=== PATIENT | female | born 1970 | race African-American/Black ===

== ENCOUNTER 2024-07-16 19:19 | Inpatient (IN) | payer OTHER ==
[~2024-07-16] VITALS: Ht 165.1 cm; Wt 148.4 kg
[2024-07-16 19:30] VITALS: PULSE 116; RESP 29; O2SAT 98
[2024-07-16] MEDS: MethylPREDNISolone SOD SUCC 125 MG/2 ML VIAL IVP ONE (19:36)
[2024-07-16] MEDS: ALBUTEROL SULFATE 2.5 MG/0.5 ML NEB SOLUTION NEB ONE ×2 (19:39→21:15)
[2024-07-16 19:48] LABS: BASOPHILS % (AUTO) 0.3 % (0.0-2.0); EOSINOPHILS % (AUTO) 0 % (1.0-6.0); HEMATOCRIT 47.5 % (36-46); HEMOGLOBIN 14.7 g/dL (12.0-16.0); LYMPHOCYTES # (AUTO) 2.7 K/uL (1.0-4.8); LYMPHOCYTES % (AUTO) 17.4 % (22.0-44.0); MEAN CORPUSCULAR HEMOGLOBIN 28.6 pg (26.0-34.0); MEAN CORPUSCULAR HGB CONC 30.9 G/dL (31.0-37.0); MEAN CORPUSCULAR VOLUME 93 fL (80-100); MONOCYTES # (AUTO) 1.1 K/uL (0.1-1.0); NEUTROPHILS # (AUTO) 11.6 K/uL (1.8-7.7); NEUTROPHILS % (AUTO) 75.3 % (40.0-70.0); PLATELET COUNT (AUTO) 268 K/uL (150-450); RED BLOOD CELL COUNT(AUTO) 5.14 MIL/uL (4.00-5.20); RED CELL DISTRIBUTION WIDTH 15.4 % (11.5-14.5); WHITE BLOOD COUNT (AUTO) 15.4 K/uL (4.5-11.0)
[2024-07-16 19:59] LABS: ANION GAP -1 mmol/L (8-16); CALCIUM, TOTAL 8.5 mg/dL (8.8-10.5); CARBON DIOXIDE 36 mmol/L (22-29); CHLORIDE 97 mmol/L (98-107); CREATININE 0.74 mg/dL (0.60-1.30); GLOMERULAR FILTR. RATE CALC > 60 mL/min (>60); GLUCOSE,RANDOM 205 mg/dL (70-110); SODIUM SERUM 132 mmol/L (136-145); UREA NITROGEN, BLOOD 6 mg/dL (7-18)
[2024-07-16] MEDS: CefTRIAXone 1 GM/DEXTROSE 50 ML IV ONE (20:09)
[2024-07-16 20:13] LABS: B-TYPE NATRIURETIC PEPTIDE 107 pg/mL (0-100)
[2024-07-16 20:15] VITALS: PULSE 116; RESP 29; O2SAT 98
[2024-07-16] MEDS: HydrALAZINE HCL 20 MG/ML VIAL IVP ONE ×2 (20:17→21:49)
[2024-07-16] MEDS: AZITHROMYCIN 500 MG/NS 250 ML IV ONE (20:21)
[2024-07-16 20:23] LABS: TROPONIN I-HIGH SENSITIVITY 23 ng/L (<51)
[2024-07-16 20:35] LABS: CREATINE KINASE, TOTAL ONLY 196 U/L (26-192)
[2024-07-16 20:40] LABS: LACTIC ACID 1.1 mmol/L (0.4-2.0)
[2024-07-16 20:54] LABS: COVID AG,FIA SOURCE NASAL SWAB
[2024-07-16 21:06] LABS: ABG BASE EXCESS 6.6 mmol/L (-2.0-3.0); ABG CARBOXYHEMOGLOBIN 0.9 % (0.5-1.5); ABG HCO3 27.2 mmol/L (21.0-28.0); ABG METHEMOGLOBIN 0.9 % (0.0-1.5); ABG OXYGEN CONTENT 22.6 mL/dL (15.0-23.0); ABG OXYGEN SATURATION 99.7 % (94.0-98.0); ABG OXYHEMOGLOBIN 97.9 % (94.0-98.0); ABG TOTAL HEMOGLOBIN 15.6 G/dL (12.0-16.0); SOURCE, BLOOD GAS ARTERIAL; TEMPERATURE, FAHRENHEIT, BG 98.6 FAHREN (96.0-98.6)
[2024-07-16 21:07] LABS: ABG PCO2 89 mmHg (32.0-45.0); ABG PH 7.205 (7.350-7.450); ALLEN TEST, BLOOD GAS Positive; O2 DEVICE,BLOOD GAS BIPAP (ROOM AIR); SITE, BLOOD GAS RT RADIAL
[2024-07-16 21:31] LABS: INFLUENZA TYPE A NEGATIVE FOR TYPE A (NEGATIVE); INFLUENZA TYPE B NEGATIVE FOR TYPE B (NEGATIVE)
[2024-07-16 21:32] LABS: SARS-COV2 (COVID) ANTIGEN,FIA Negative (Negative)
[2024-07-16] MEDS: ACETAMINOPHEN 1000 MG/ISO-OSM 100 ML IV ONE (21:49)
[2024-07-16] MEDS ORDERED: HYDROCODONE/ACETAMINOPHEN 5-325 MG TABLET PO PRN (22:30)
[2024-07-16] MEDS ORDERED: ALBUTEROL SULFATE 2.5 MG/0.5 ML NEB SOLUTION NEB PRN (22:30)
[2024-07-16] MEDS ORDERED: MAGNESIUM HYDROXIDE SUSPENSION 30 ML UDCUP PO PRN (22:30)
[2024-07-16] MEDS ORDERED: ZOLPIDEM TARTRATE 5 MG TABLET PO PRN (22:30)
[2024-07-16] MEDS ORDERED: ONDANSETRON HCL 4 MG/2 ML VIAL IVP PRN (22:30)
[2024-07-16] MEDS ORDERED: IPRATROPIUM BROMIDE 0.5 MG/2.5 ML NEB SOLUTION NEB PRN (22:30)
[2024-07-16] MEDS: SODIUM CHLORIDE 0.9% 3,000 ML IV ONE (22:43)
[2024-07-16 22:45] LABS: ABG BASE EXCESS 5.4 mmol/L (-2.0-3.0); ABG CARBOXYHEMOGLOBIN 0.9 % (0.5-1.5); ABG HCO3 26.4 mmol/L (21.0-28.0); ABG METHEMOGLOBIN 0.8 % (0.0-1.5); ABG OXYGEN CONTENT 21.9 mL/dL (15.0-23.0); ABG OXYGEN SATURATION 98.8 % (94.0-98.0); ABG OXYHEMOGLOBIN 97.1 % (94.0-98.0); ABG TOTAL HEMOGLOBIN 15.9 G/dL (12.0-16.0); SOURCE, BLOOD GAS ARTERIAL; TEMPERATURE, FAHRENHEIT, BG 98.6 FAHREN (96.0-98.6)
[2024-07-16 23:02] VITALS: PULSE 111; RESP 32; O2SAT 97
[2024-07-16 23:07] LABS: ABG PCO2 84 mmHg (32.0-45.0); ABG PH 7.216 (7.350-7.450); SITE, BLOOD GAS RT RADIAL
[2024-07-16 23:08] LABS: ALLEN TEST, BLOOD GAS Positive; INSPIRATORY TIME, BG 0.9 SEC; O2 DEVICE,BLOOD GAS BIPAP (ROOM AIR)
[2024-07-17] VITALS (18 sets, daily range): BP systolic 111–165; BP diastolic 68–89; PULSE 72–111; RESP 24–35; TEMP 98–100.4; O2SAT 90–100
[2024-07-17] MEDS: MethylPREDNISolone SOD SUCC 125 MG/2 ML VIAL IVP SCH ×2 (00:14→17:05)
[2024-07-17] MEDS: HEPARIN SODIUM,PORCINE 5,000 UNITS/ML VIAL SQ SCH (00:15)
[2024-07-17] MEDS: CloNIDine HCL 0.1 MG TABLET PO PRN (01:33)
[2024-07-17] MEDS: IPRATROPIUM BROMIDE 0.5 MG/2.5 ML NEB SOLUTION NEB SCH (03:14)
[2024-07-17] MEDS: ALBUTEROL SULFATE 2.5 MG/0.5 ML NEB SOLUTION NEB SCH (03:14)
[2024-07-17] MEDS: HydrALAZINE HCL 20 MG/ML VIAL IVP PRN ×2 (03:57→11:04)
[2024-07-17 04:48] LABS: APPEARANCE,URINE CLEAR (CLEAR); BILIRUBIN,URINE NEGATIVE (NEGATIVE); COLOR,URINE YELLOW (YELLOW); GLUCOSE, URINE (UA) 70-100 mg/dL (NEGATIVE); KETONES,URINE NEGATIVE (NEGATIVE); LEUKOCYTE ESTERASE ,URINE NEGATIVE (NEGATIVE); NITRATE,URINE NEGATIVE (NEGATIVE); OCCULT BLOOD,URINE NEGATIVE (NEGATIVE); PROTEIN,URINE 100-200,SEE CONFIRM mg/dL (NEGATIVE); SPECIFIC GRAVITIY, URINE 1.014 (1.003-1.030); UROBILINOGEN,URINE <=1.0 mg/dL (<=1.0)
[2024-07-17 04:49] LABS: BACTERIA,URINE Rare /HPF (None Seen); RBC,URINE 0-2 /HPF (0-2); SULFOSALICYLIC ACID,URINE 2+ (Negative); WBC,URINE 0-2 /HPF (0-5)
[2024-07-17 04:55] LABS: ALCOHOL, URINE DRUG SCREEN NEGATIVE (NEGATIVE); AMPHET/METH SCREEN,URINE POSITIVE (NEGATIVE); BARBITURATE SCREEN, URINE NEGATIVE (NEGATIVE); BENZODIAZEPINES SCREEN,URINE NEGATIVE (NEGATIVE); CANNABINOID SCREEN,URINE NEGATIVE (NEGATIVE); COCAINE SCREEN,URINE NEGATIVE (NEGATIVE); METHADONE SCREEN, URINE NEGATIVE (NEGATIVE); OPIATE SCREEN,URINE NEGATIVE (NEGATIVE); PHENCYCLIDINE SCREEN,URINE NEGATIVE (NEGATIVE)
[2024-07-17 06:02] LABS: HEMOGLOBIN 14.9 g/dL (12.0-16.0); MEAN CORPUSCULAR HGB CONC 31.1 G/dL (31.0-37.0); MEAN CORPUSCULAR VOLUME 93 fL (80-100); RED BLOOD CELL COUNT(AUTO) 5.16 MIL/uL (4.00-5.20); RED CELL DISTRIBUTION WIDTH 15.6 % (11.5-14.5); WHITE BLOOD COUNT (AUTO) 17.8 K/uL (4.5-11.0)
[2024-07-17 06:38] LABS: PLATELET COUNT (AUTO) 255 K/uL (150-450)
[2024-07-17 06:57] LABS: CALCIUM, TOTAL 7.6 mg/dL (8.8-10.5); CARBON DIOXIDE 35 mmol/L (22-29); CHLORIDE 101 mmol/L (98-107); CREATININE 0.86 mg/dL (0.60-1.30); GLOMERULAR FILTR. RATE CALC > 60 mL/min (>60); GLUCOSE,RANDOM 209 mg/dL (70-110); POTASSIUM 5.6 mmol/L (3.5-5.1); SODIUM SERUM 135 mmol/L (136-145); UREA NITROGEN, BLOOD 8 mg/dL (7-18)
[2024-07-17 07:08] LABS: BAND NEUTROPHILS % (MANUAL) 14 % (0-5); LYMPHOCYTES % (MANUAL) 7 % (22-44); MONOCYTES % (MANUAL) 2 % (2-9); SEGMENTED NEUTROPHILS % 77 % (40-70); TOTAL CELLS COUNTED 100
[2024-07-17 07:09] LABS: RBC MORPHOLOGY COMMENT ABNORMAL R
[2024-07-17 07:09] LABS: ANION GAP -1 mmol/L (8-16)
[2024-07-17] MEDS: SODIUM POLYSTYRENE SULFONATE 15 GM/60 ML SUSPENSION BOTTLE PO ONE ×2 (08:12→18:31)
[2024-07-17] MEDS: GuaiFENesin SR 600 MG ER TABLET PO SCH (08:16)
[2024-07-17] MEDS: BENZONATATE 100 MG CAPSULE PO SCH (08:17)
[2024-07-17] MEDS: DOCUSATE SODIUM 100 MG CAPSULE PO SCH (08:18)
[2024-07-17] MEDS: PANTOPRAZOLE SODIUM 40 MG DR TABLET PO SCH (08:18)
[2024-07-17] MEDS: AmLODIPine BESYLATE 10 MG TABLET PO SCH (08:19)
[2024-07-17 10:20] LABS: ABG BASE EXCESS 0.6 mmol/L (-2.0-3.0); ABG CARBOXYHEMOGLOBIN 0.9 % (0.5-1.5); ABG HCO3 22.4 mmol/L (21.0-28.0); ABG METHEMOGLOBIN 0.3 % (0.0-1.5); ABG OXYGEN SATURATION 95.5 % (94.0-98.0); ABG OXYHEMOGLOBIN 94.4 % (94.0-98.0); ABG TOTAL HEMOGLOBIN 15.8 G/dL (12.0-16.0); PO2, ARTERIAL BG 88.6 mmHg (83.0-108.0); SOURCE, BLOOD GAS ARTERIAL; TEMPERATURE, FAHRENHEIT, BG 98.6 FAHREN (96.0-98.6)
[2024-07-17 10:22] LABS: ABG A-A DIFF O2 130.6 mmHg (10-20.0); ABG PCO2 89 mmHg (32.0-45.0); ABG PH 7.138 (7.350-7.450); ALLEN TEST, BLOOD GAS Positive; O2 DEVICE,BLOOD GAS BIPAP (ROOM AIR); SITE, BLOOD GAS RT RADIAL
[2024-07-17 10:23] LABS: SPONTANEOUS VT, BG 360 ml
[2024-07-17] MEDS: BUDESONIDE 0.5 MG/2 ML NEB SOLUTION NEB SCH (10:31)
[2024-07-17] MEDS: METOPROLOL TARTRATE 50 MG TABLET PO SCH (11:34)
[2024-07-17] MEDS: LORazepam 2 MG/ML VIAL IVP PRN (11:35)
[2024-07-17 15:17] LABS: ABG BASE EXCESS 3.8 mmol/L (-2.0-3.0); ABG CARBOXYHEMOGLOBIN 0.9 % (0.5-1.5); ABG HCO3 25.8 mmol/L (21.0-28.0); ABG METHEMOGLOBIN 0.2 % (0.0-1.5); ABG OXYGEN CONTENT 19.2 mL/dL (15.0-23.0); ABG OXYGEN SATURATION 94.3 % (94.0-98.0); ABG OXYHEMOGLOBIN 93.3 % (94.0-98.0); ABG PH 7.265 (7.350-7.450); ABG TOTAL HEMOGLOBIN 14.6 G/dL (12.0-16.0); PO2, ARTERIAL BG 69.8 mmHg (83.0-108.0); SOURCE, BLOOD GAS ARTERIAL; TEMPERATURE, FAHRENHEIT, BG 98.3 FAHREN (96.0-98.6)
[2024-07-17 15:18] LABS: ABG PCO2 69 mmHg (32.0-45.0); INSPIRATORY TIME, BG 1 SEC; O2 DEVICE,BLOOD GAS BIPAP (ROOM AIR); PRESSURE SUPPORT, BG 19 cm H2O; SITE, BLOOD GAS RT BRACHIAL
[2024-07-17] MEDS ORDERED: ETOMIDATE 2 MG/ML 10 ML VIAL ONE (15:25)
[2024-07-17] MEDS ORDERED: ROCURONIUM BROMIDE 10 MG/ML 5 ML VIAL ONE (15:25)
[2024-07-17] MEDS: ETOMIDATE 2 MG/ML 10 ML VIAL IVP ONE (16:37)
[2024-07-17] MEDS: RINGERS SOLUTION,LACTATED 1,000 ML IV ONE (16:38)
[2024-07-17] MEDS: ROCURONIUM BROMIDE 10 MG/ML 5 ML VIAL IVP ONE (16:38)
[2024-07-17] MEDS: NOREPINEPHRINE 8 MG/0.9 % NACL 250 ML IV PRN (16:39)
[2024-07-17 16:51] LABS: ANION GAP 8 mmol/L (8-16); CALCIUM, TOTAL 7.9 mg/dL (8.8-10.5); CARBON DIOXIDE 30 mmol/L (22-29); CHLORIDE 100 mmol/L (98-107); CREATININE 1.05 mg/dL (0.60-1.30); GLOMERULAR FILTR. RATE CALC > 60 mL/min (>60); GLUCOSE,RANDOM 185 mg/dL (70-110); POTASSIUM 5.5 mmol/L (3.5-5.1); SODIUM SERUM 138 mmol/L (136-145); UREA NITROGEN, BLOOD 17 mg/dL (7-18)
[2024-07-17] MEDS: FentaNYL CIT 1000MCG/0.9% NACL 100 ML IV PRN (16:54)
[2024-07-17] MEDS: PROPOFOL 1000 MG/ISO-OSM 100 ML IV PRN (16:56)
[2024-07-17] MEDS: ALBUMIN HUMAN 25%-25GM/100ML 100 ML IV SCH (16:59)
[2024-07-17 17:09] LABS: ABG BASE EXCESS 3.1 mmol/L (-2.0-3.0); ABG CARBOXYHEMOGLOBIN 0.9 % (0.5-1.5); ABG HCO3 26.2 mmol/L (21.0-28.0); ABG METHEMOGLOBIN 0.2 % (0.0-1.5); ABG OXYGEN CONTENT 20.9 mL/dL (15.0-23.0); ABG OXYHEMOGLOBIN 98.9 % (94.0-98.0); ABG PCO2 58 mmHg (32.0-45.0); ABG PH 7.322 (7.350-7.450); ABG TOTAL HEMOGLOBIN 14.5 G/dL (12.0-16.0); SOURCE, BLOOD GAS ARTERIAL; TEMPERATURE, FAHRENHEIT, BG 99.8 FAHREN (96.0-98.6)
[2024-07-17 17:10] LABS: ALLEN TEST, BLOOD GAS Positive; O2 DEVICE,BLOOD GAS VENTILATOR (ROOM AIR); PEEP,BG 5 cm H2O; PO2, ARTERIAL BG 317.1 mmHg (83.0-108.0); SITE, BLOOD GAS LFT RADIAL; SPONTANEOUS VT, BG 408 ml; VT, ABG 400 ml
[2024-07-17] MEDS: ACETAMINOPHEN 325 MG TABLET PO PRN (18:31)
[2024-07-17] MEDS ORDERED: SODIUM CHLORIDE 0.9% 250 ML IV ONE (21:41)
[2024-07-17] MEDS: CefTRIAXone 1 GM/DEXTROSE 50 ML IV SCH (21:50)
[2024-07-17] MEDS: AZITHROMYCIN 500 MG/NS 250 ML IV SCH (22:31)
[2024-07-18] VITALS (25 sets, daily range): BP systolic 126–153; BP diastolic 72–84; PULSE 65–75; RESP 24; TEMP 98.1–99.9; O2SAT 93–97
[2024-07-18 06:27] LABS: BASOPHILS % (AUTO) 0.4 % (0.0-2.0); EOSINOPHILS % (AUTO) 0.1 % (1.0-6.0); HEMATOCRIT 40.7 % (36-46); HEMOGLOBIN 12.7 g/dL (12.0-16.0); LYMPHOCYTES # (AUTO) 1.3 K/uL (1.0-4.8); LYMPHOCYTES % (AUTO) 8.1 % (22.0-44.0); MEAN CORPUSCULAR HEMOGLOBIN 28.9 pg (26.0-34.0); MEAN CORPUSCULAR HGB CONC 31.2 G/dL (31.0-37.0); MEAN CORPUSCULAR VOLUME 92 fL (80-100); MONOCYTES # (AUTO) 0.6 K/uL (0.1-1.0); MONOCYTES % (AUTO) 3.6 % (2.0-9.0); NEUTROPHILS # (AUTO) 14.3 K/uL (1.8-7.7); PLATELET COUNT (AUTO) 254 K/uL (150-450); RED BLOOD CELL COUNT(AUTO) 4.41 MIL/uL (4.00-5.20); RED CELL DISTRIBUTION WIDTH 15.4 % (11.5-14.5); WHITE BLOOD COUNT (AUTO) 16.2 K/uL (4.5-11.0)
[2024-07-18 06:28] LABS: CALCIUM, TOTAL 7.8 mg/dL (8.8-10.5); CREATININE 1.82 mg/dL (0.60-1.30); POTASSIUM 3.7 mmol/L (3.5-5.1)
[2024-07-18 07:28] LABS: NEUTROPHILS % (AUTO) 87.8 % (40.0-70.0)
[2024-07-18] MEDS: LOSARTAN POTASSIUM 50 MG TABLET PO SCH (10:04)
[2024-07-18] MEDS: PANTOPRAZOLE SODIUM 40 MG/VIAL IVP SCH (10:04)
[2024-07-18] MEDS: SODIUM CHLORIDE 0.9% 1,000 ML IV ONE (11:29)
[2024-07-19] VITALS (23 sets, daily range): BP systolic 120–144; BP diastolic 61–83; PULSE 62–72; RESP 12–24; TEMP 97.6–99.3; O2SAT 91–96
[2024-07-19 06:15] LABS: BASOPHILS % (AUTO) 0.4 % (0.0-2.0); EOSINOPHILS % (AUTO) 0.9 % (1.0-6.0); HEMOGLOBIN 12.1 g/dL (12.0-16.0); LYMPHOCYTES # (AUTO) 0.9 K/uL (1.0-4.8); LYMPHOCYTES % (AUTO) 7.4 % (22.0-44.0); MEAN CORPUSCULAR HGB CONC 31.8 G/dL (31.0-37.0); MEAN CORPUSCULAR VOLUME 91 fL (80-100); MONOCYTES # (AUTO) 0.4 K/uL (0.1-1.0); MONOCYTES % (AUTO) 3.2 % (2.0-9.0); NEUTROPHILS # (AUTO) 10.3 K/uL (1.8-7.7); PLATELET COUNT (AUTO) 264 K/uL (150-450); RED BLOOD CELL COUNT(AUTO) 4.16 MIL/uL (4.00-5.20); RED CELL DISTRIBUTION WIDTH 15.3 % (11.5-14.5); WHITE BLOOD COUNT (AUTO) 11.7 K/uL (4.5-11.0)
[2024-07-19 06:22] LABS: NEUTROPHILS % (AUTO) 88.1 % (40.0-70.0)
[2024-07-19 06:27] LABS: CALCIUM, TOTAL 7.8 mg/dL (8.8-10.5); CREATININE 1.55 mg/dL (0.60-1.30); POTASSIUM 3.2 mmol/L (3.5-5.1)
[2024-07-19] MEDS: DEXMEDETOMIDINE 400 MCG/NS 100 ML IV PRN (08:51)
[2024-07-19 13:35] LABS: ABG BASE EXCESS -1.1 mmol/L (-2.0-3.0); ABG CARBOXYHEMOGLOBIN 0.8 % (0.5-1.5); ABG HCO3 22.9 mmol/L (21.0-28.0); ABG METHEMOGLOBIN 0.1 % (0.0-1.5); ABG OXYGEN CONTENT 17.7 mL/dL (15.0-23.0); ABG OXYGEN SATURATION 95.7 % (94.0-98.0); ABG OXYHEMOGLOBIN 94.8 % (94.0-98.0); ABG PCO2 56 mmHg (32.0-45.0); ABG PH 7.282 (7.350-7.450); ABG TOTAL HEMOGLOBIN 13.2 G/dL (12.0-16.0); PO2, ARTERIAL BG 88.2 mmHg (83.0-108.0); SOURCE, BLOOD GAS ARTERIAL; TEMPERATURE, FAHRENHEIT, BG 98.9 FAHREN (96.0-98.6)
[2024-07-19 13:36] LABS: ABG A-A DIFF O2 169.2 mmHg (10-20.0); ALLEN TEST, BLOOD GAS Positive; O2 DEVICE,BLOOD GAS VENTILATOR (ROOM AIR); PEEP,BG 0 cm H2O; PRESSURE SUPPORT, BG 8 cm H2O; SITE, BLOOD GAS LFT RADIAL; SPONTANEOUS VT, BG 422 ml; VENT MODE, BG SPONTANEOUS (ROOM AIR)
[2024-07-19 14:00] LABS: CREATININE 1.63 mg/dL (0.60-1.30); MAGNESIUM 2.4 mg/dL (1.80-2.40); POTASSIUM 3.5 mmol/L (3.5-5.1)
[2024-07-19] MEDS ORDERED: DEXTROSE 50%-WATER 25 GM/50 ML SYRINGE IVP PRN (15:00)
[2024-07-19] MEDS: INSULIN LISPRO 100 UNITS/ML SQ PRN (16:45)
[2024-07-19 17:01] LABS: GLUCOMETER DEV NAME(LOC) ICU.S6; GLUCOSE,POINT OF CARE 302 MG/DL (70-110)
[2024-07-19] MEDS ORDERED: SODIUM CHLORIDE 0.9% 250 ML IV ONE (21:10)
[2024-07-19 23:05] LABS: GLUCOMETER DEV NAME(LOC) ICU.S6; GLUCOSE,POINT OF CARE 315 MG/DL (70-110)
[2024-07-20] VITALS (24 sets, daily range): BP systolic 117–168; BP diastolic 56–95; PULSE 64–97; RESP 20–34; TEMP 98.1–100; O2SAT 91–98
[2024-07-20 06:10] LABS: GLUCOMETER DEV NAME(LOC) ICU.S6; GLUCOSE,POINT OF CARE 316 MG/DL (70-110)
[2024-07-20 06:12] LABS: BASOPHILS % (AUTO) 0.2 % (0.0-2.0); EOSINOPHILS % (AUTO) 0 % (1.0-6.0); HEMATOCRIT 37.9 % (36-46); HEMOGLOBIN 12.1 g/dL (12.0-16.0); LYMPHOCYTES # (AUTO) 0.7 K/uL (1.0-4.8); MEAN CORPUSCULAR HEMOGLOBIN 29.3 pg (26.0-34.0); MEAN CORPUSCULAR VOLUME 92 fL (80-100); MONOCYTES # (AUTO) 0.5 K/uL (0.1-1.0); MONOCYTES % (AUTO) 6.3 % (2.0-9.0); NEUTROPHILS % (AUTO) 83.5 % (40.0-70.0); PLATELET COUNT (AUTO) 252 K/uL (150-450); RED BLOOD CELL COUNT(AUTO) 4.15 MIL/uL (4.00-5.20); RED CELL DISTRIBUTION WIDTH 15.3 % (11.5-14.5); WHITE BLOOD COUNT (AUTO) 7.2 K/uL (4.5-11.0)
[2024-07-20 06:22] LABS: CALCIUM, TOTAL 8.2 mg/dL (8.8-10.5); CREATININE 1.57 mg/dL (0.60-1.30); POTASSIUM 3.5 mmol/L (3.5-5.1)
[2024-07-20 11:30] LABS: ABG BASE EXCESS 0.5 mmol/L (-2.0-3.0); ABG CARBOXYHEMOGLOBIN 0.6 % (0.5-1.5); ABG HCO3 24.1 mmol/L (21.0-28.0); ABG METHEMOGLOBIN 0.1 % (0.0-1.5); ABG OXYGEN CONTENT 18.4 mL/dL (15.0-23.0); ABG OXYHEMOGLOBIN 95.3 % (94.0-98.0); ABG PCO2 57 mmHg (32.0-45.0); ABG PH 7.295 (7.350-7.450); ABG TOTAL HEMOGLOBIN 13.7 G/dL (12.0-16.0); PO2, ARTERIAL BG 95.2 mmHg (83.0-108.0); SOURCE, BLOOD GAS ARTERIAL
[2024-07-20 11:31] LABS: ALLEN TEST, BLOOD GAS Positive; CPAP, BG 5 cm H2O; O2 DEVICE,BLOOD GAS VENTILATOR (ROOM AIR); SITE, BLOOD GAS RT RADIAL; VENT MODE, BG CPAP (ROOM AIR)
[2024-07-20 11:32] LABS: INSIPIRATORY PRESSURE, BG 356 cm H2O; PRESSURE SUPPORT, BG 8 cm H2O
[2024-07-20 12:06] LABS: GLUCOMETER DEV NAME(LOC) ICUN.5; GLUCOSE,POINT OF CARE 305 MG/DL (70-110)
[2024-07-20 17:30] LABS: GLUCOMETER DEV NAME(LOC) ICU.S6; GLUCOSE,POINT OF CARE 332 MG/DL (70-110)
[2024-07-20] MEDS ORDERED: DEXTROSE 50%-WATER 25 GM/50 ML SYRINGE IVP PRN (17:30)
[2024-07-20] MEDS: INSULIN LISPRO 100 UNITS/ML SQ PRN (17:48)
[2024-07-20 17:54] LABS: CREATININE,URINE RANDOM 107.6 mg/dL (30.0-125.0)
[2024-07-20] MEDS: ETHYL ALCOHOL 62% ANTISEPTIC NASAL SANITIZER 0.6 ML AMPUL NASAL SCH (22:35)
[2024-07-21] VITALS (23 sets, daily range): BP systolic 98–169; BP diastolic 59–95; PULSE 63–84; RESP 20–24; TEMP 97.2–98; O2SAT 90–97
[2024-07-21 06:01] LABS: GLUCOMETER DEV NAME(LOC) ICU.S6; GLUCOSE,POINT OF CARE 329 MG/DL (70-110)
[2024-07-21 06:38] LABS: CALCIUM, TOTAL 8.7 mg/dL (8.8-10.5); CREATININE 1.27 mg/dL (0.60-1.30); MAGNESIUM 2.9 mg/dL (1.80-2.40); PHOSPHORUS 3.1 mg/dL (2.5-4.9); POTASSIUM 3.7 mmol/L (3.5-5.1)
[2024-07-21 07:58] LABS: BASOPHILS % (AUTO) 0.4 % (0.0-2.0); EOSINOPHILS % (AUTO) 0.1 % (1.0-6.0); HEMATOCRIT 39.6 % (36-46); HEMOGLOBIN 12.5 g/dL (12.0-16.0); LYMPHOCYTES # (AUTO) 0.7 K/uL (1.0-4.8); LYMPHOCYTES % (AUTO) 9.8 % (22.0-44.0); MEAN CORPUSCULAR HEMOGLOBIN 28.9 pg (26.0-34.0); MEAN CORPUSCULAR HGB CONC 31.6 G/dL (31.0-37.0); MEAN CORPUSCULAR VOLUME 92 fL (80-100); MONOCYTES # (AUTO) 0.6 K/uL (0.1-1.0); MONOCYTES % (AUTO) 8.3 % (2.0-9.0); NEUTROPHILS # (AUTO) 5.6 K/uL (1.8-7.7); NEUTROPHILS % (AUTO) 81.4 % (40.0-70.0); PLATELET COUNT (AUTO) 229 K/uL (150-450); RED BLOOD CELL COUNT(AUTO) 4.32 MIL/uL (4.00-5.20); RED CELL DISTRIBUTION WIDTH 15.4 % (11.5-14.5); WHITE BLOOD COUNT (AUTO) 6.9 K/uL (4.5-11.0)
[2024-07-21] MEDS: AmLODIPine BESYLATE 10 MG TABLET PO SCH (08:01)
[2024-07-21 08:31] LABS: GLUCOMETER DEV NAME(LOC) ICU.S6; GLUCOSE,POINT OF CARE 337 MG/DL (70-110)
[2024-07-21 14:46] LABS: GLUCOMETER DEV NAME(LOC) ICUN.5; GLUCOSE,POINT OF CARE 293 MG/DL (70-110)
[2024-07-21 20:10] LABS: GLUCOMETER DEV NAME(LOC) ICUN.5; GLUCOSE,POINT OF CARE 244 MG/DL (70-110)
[2024-07-22] VITALS (25 sets, daily range): BP systolic 142–161; BP diastolic 72–87; PULSE 63–90; RESP 11–27; TEMP 96.9–98.2; O2SAT 87–96
[2024-07-22 00:06] LABS: GLUCOMETER DEV NAME(LOC) ICU.S6; GLUCOSE,POINT OF CARE 258 MG/DL (70-110)
[2024-07-22 02:06] LABS: GLUCOMETER DEV NAME(LOC) ICUN.5; GLUCOSE,POINT OF CARE 248 MG/DL (70-110)
[2024-07-22 07:34] LABS: BASOPHILS % (AUTO) 0.2 % (0.0-2.0); EOSINOPHILS % (AUTO) 0.1 % (1.0-6.0); HEMOGLOBIN 13.3 g/dL (12.0-16.0); LYMPHOCYTES % (AUTO) 10.7 % (22.0-44.0); MEAN CORPUSCULAR HEMOGLOBIN 29.1 pg (26.0-34.0); MEAN CORPUSCULAR HGB CONC 31.6 G/dL (31.0-37.0); MEAN CORPUSCULAR VOLUME 92 fL (80-100); MONOCYTES # (AUTO) 0.8 K/uL (0.1-1.0); MONOCYTES % (AUTO) 8.6 % (2.0-9.0); NEUTROPHILS # (AUTO) 7.7 K/uL (1.8-7.7); NEUTROPHILS % (AUTO) 80.4 % (40.0-70.0); PLATELET COUNT (AUTO) 215 K/uL (150-450); RED BLOOD CELL COUNT(AUTO) 4.56 MIL/uL (4.00-5.20); RED CELL DISTRIBUTION WIDTH 15.5 % (11.5-14.5); WHITE BLOOD COUNT (AUTO) 9.6 K/uL (4.5-11.0)
[2024-07-22 07:46] LABS: ANION GAP 7 mmol/L (8-16); CALCIUM, TOTAL 9.3 mg/dL (8.8-10.5); CARBON DIOXIDE 34 mmol/L (22-29); CHLORIDE 107 mmol/L (98-107); CREATININE 1.07 mg/dL (0.60-1.30); GLOMERULAR FILTR. RATE CALC > 60 mL/min (>60); GLUCOSE,RANDOM 273 mg/dL (70-110); PHOSPHORUS 3.2 mg/dL (2.5-4.9); POTASSIUM 3.6 mmol/L (3.5-5.1); SODIUM SERUM 148 mmol/L (136-145); UREA NITROGEN, BLOOD 55 mg/dL (7-18)
[2024-07-22 08:20] LABS: GLUCOMETER DEV NAME(LOC) ICU.S6; GLUCOSE,POINT OF CARE 243 MG/DL (70-110)
[2024-07-22] MEDS: LOSARTAN POTASSIUM 25 MG TABLET PO SCH (10:30)
[2024-07-22 10:37] LABS: ABG BASE EXCESS 4.7 mmol/L (-2.0-3.0); ABG CARBOXYHEMOGLOBIN 0.7 % (0.5-1.5); ABG HCO3 26.8 mmol/L (21.0-28.0); ABG METHEMOGLOBIN 0.1 % (0.0-1.5); ABG OXYGEN CONTENT 17.1 mL/dL (15.0-23.0); ABG OXYGEN SATURATION 89.3 % (94.0-98.0); ABG OXYHEMOGLOBIN 88.6 % (94.0-98.0); ABG PCO2 64 mmHg (32.0-45.0); ABG PH 7.304 (7.350-7.450); ABG TOTAL HEMOGLOBIN 13.7 G/dL (12.0-16.0); ALLEN TEST, BLOOD GAS Positive; PO2, ARTERIAL BG 60.6 mmHg (83.0-108.0); SITE, BLOOD GAS RT RADIAL; SOURCE, BLOOD GAS ARTERIAL; TEMPERATURE, FAHRENHEIT, BG 97.9 FAHREN (96.0-98.6)
[2024-07-22 10:38] LABS: ABG A-A DIFF O2 151.4 mmHg (10-20.0); CPAP, BG 0 cm H2O; O2 DEVICE,BLOOD GAS VENTILATOR (ROOM AIR); PRESSURE SUPPORT, BG 8 cm H2O; SPONTANEOUS VT, BG 576 ml; VENT MODE, BG CPAP (ROOM AIR)
[2024-07-22 15:26] LABS: GLUCOMETER DEV NAME(LOC) ICU.S6; GLUCOSE,POINT OF CARE 277 MG/DL (70-110)
[2024-07-22] MEDS ORDERED: SODIUM CHLORIDE 0.9% 250 ML IV ONE (19:59)
[2024-07-22 20:16] LABS: GLUCOMETER DEV NAME(LOC) ICU.S6; GLUCOSE,POINT OF CARE 307 MG/DL (70-110)
[2024-07-23] VITALS (26 sets, daily range): BP systolic 131–170; BP diastolic 72–82; PULSE 26–98; RESP 20–27; TEMP 97.9–98.4; O2SAT 90–98
[2024-07-23 00:16] LABS: GLUCOMETER DEV NAME(LOC) ICU.S6; GLUCOSE,POINT OF CARE 333 MG/DL (70-110)
[2024-07-23 05:32] LABS: EOSINOPHILS % (AUTO) 0.4 % (1.0-6.0); HEMATOCRIT 39.3 % (36-46); HEMOGLOBIN 12.5 g/dL (12.0-16.0); LYMPHOCYTES # (AUTO) 0.6 K/uL (1.0-4.8); LYMPHOCYTES % (AUTO) 4.9 % (22.0-44.0); MEAN CORPUSCULAR HEMOGLOBIN 28.9 pg (26.0-34.0); MEAN CORPUSCULAR HGB CONC 31.9 G/dL (31.0-37.0); MEAN CORPUSCULAR VOLUME 91 fL (80-100); MONOCYTES # (AUTO) 0.8 K/uL (0.1-1.0); MONOCYTES % (AUTO) 7.4 % (2.0-9.0); NEUTROPHILS # (AUTO) 9.8 K/uL (1.8-7.7); PLATELET COUNT (AUTO) 204 K/uL (150-450); RED BLOOD CELL COUNT(AUTO) 4.34 MIL/uL (4.00-5.20); RED CELL DISTRIBUTION WIDTH 15.6 % (11.5-14.5); WHITE BLOOD COUNT (AUTO) 11.2 K/uL (4.5-11.0)
[2024-07-23 05:52] LABS: ANION GAP 6 mmol/L (8-16); CALCIUM, TOTAL 9.2 mg/dL (8.8-10.5); CARBON DIOXIDE 33 mmol/L (22-29); CHLORIDE 107 mmol/L (98-107); CREATININE 1.05 mg/dL (0.60-1.30); GLOMERULAR FILTR. RATE CALC > 60 mL/min (>60); GLUCOSE,RANDOM 352 mg/dL (70-110); NEUTROPHILS % (AUTO) 87.3 % (40.0-70.0); SODIUM SERUM 146 mmol/L (136-145); UREA NITROGEN, BLOOD 56 mg/dL (7-18)
[2024-07-23 08:20] LABS: GLUCOMETER DEV NAME(LOC) ICU.S6; GLUCOSE,POINT OF CARE 328 MG/DL (70-110)
[2024-07-23 16:27] LABS: ABG A-A DIFF O2 182.1 mmHg (10-20.0); ABG BASE EXCESS 4.4 mmol/L (-2.0-3.0); ABG CARBOXYHEMOGLOBIN 0.8 % (0.5-1.5); ABG HCO3 26.9 mmol/L (21.0-28.0); ABG METHEMOGLOBIN 0.1 % (0.0-1.5); ABG OXYGEN CONTENT 17.8 mL/dL (15.0-23.0); ABG OXYGEN SATURATION 93.5 % (94.0-98.0); ABG OXYHEMOGLOBIN 92.7 % (94.0-98.0); ABG PCO2 59 mmHg (32.0-45.0); ABG TOTAL HEMOGLOBIN 13.6 G/dL (12.0-16.0); ALLEN TEST, BLOOD GAS Positive; CPAP, BG 5 cm H2O; O2 DEVICE,BLOOD GAS VENTILATOR (ROOM AIR); PO2, ARTERIAL BG 72.3 mmHg (83.0-108.0); SITE, BLOOD GAS LFT RADIAL; SOURCE, BLOOD GAS ARTERIAL; VENT MODE, BG CPAP (ROOM AIR)
[2024-07-23 16:28] LABS: PRESSURE SUPPORT, BG 8 cm H2O; SPONTANEOUS VT, BG 402 ml
[2024-07-23 20:20] LABS: GLUCOMETER DEV NAME(LOC) ICU.S6; GLUCOSE,POINT OF CARE 160 MG/DL (70-110)
[2024-07-23 20:20] LABS: GLUCOMETER DEV NAME(LOC) ICU.S6; GLUCOSE,POINT OF CARE 366 MG/DL (70-110)
[2024-07-24] VITALS (23 sets, daily range): BP systolic 131–183; BP diastolic 64–91; PULSE 71–105; RESP 24–30; TEMP 98.4–99.1; O2SAT 91–97
[2024-07-24 02:41] LABS: GLUCOMETER DEV NAME(LOC) ICU.S6; GLUCOSE,POINT OF CARE 341 MG/DL (70-110)
[2024-07-24 05:51] LABS: GLUCOMETER DEV NAME(LOC) ICU.S6; GLUCOSE,POINT OF CARE 328 MG/DL (70-110)
[2024-07-24 06:31] LABS: BASOPHILS % (AUTO) 0.2 % (0.0-2.0); EOSINOPHILS % (AUTO) 0.3 % (1.0-6.0); HEMATOCRIT 40.7 % (36-46); HEMOGLOBIN 12.7 g/dL (12.0-16.0); LYMPHOCYTES # (AUTO) 0.7 K/uL (1.0-4.8); LYMPHOCYTES % (AUTO) 7.1 % (22.0-44.0); MEAN CORPUSCULAR HEMOGLOBIN 28.7 pg (26.0-34.0); MEAN CORPUSCULAR HGB CONC 31.2 G/dL (31.0-37.0); MEAN CORPUSCULAR VOLUME 92 fL (80-100); MONOCYTES # (AUTO) 0.8 K/uL (0.1-1.0); MONOCYTES % (AUTO) 7.5 % (2.0-9.0); NEUTROPHILS # (AUTO) 8.9 K/uL (1.8-7.7); NEUTROPHILS % (AUTO) 84.9 % (40.0-70.0); PLATELET COUNT (AUTO) 202 K/uL (150-450); RED BLOOD CELL COUNT(AUTO) 4.42 MIL/uL (4.00-5.20); RED CELL DISTRIBUTION WIDTH 15.6 % (11.5-14.5); WHITE BLOOD COUNT (AUTO) 10.4 K/uL (4.5-11.0)
[2024-07-24 06:35] LABS: ANION GAP 3 mmol/L (8-16); CARBON DIOXIDE 36 mmol/L (22-29); CHLORIDE 106 mmol/L (98-107); GLOMERULAR FILTR. RATE CALC > 60 mL/min (>60); GLUCOSE,RANDOM 349 mg/dL (70-110); PHOSPHORUS 3.9 mg/dL (2.5-4.9); POTASSIUM 4.6 mmol/L (3.5-5.1); SODIUM SERUM 145 mmol/L (136-145); UREA NITROGEN, BLOOD 60 mg/dL (7-18)
[2024-07-24] MEDS ORDERED: SODIUM CHLORIDE 0.9% 250 ML IV ONE (08:18)
[2024-07-24 11:42] LABS: ABG BASE EXCESS 5.1 mmol/L (-2.0-3.0); ABG CARBOXYHEMOGLOBIN 0.7 % (0.5-1.5); ABG HCO3 27.5 mmol/L (21.0-28.0); ABG METHEMOGLOBIN 0.1 % (0.0-1.5); ABG OXYGEN CONTENT 18.5 mL/dL (15.0-23.0); ABG OXYGEN SATURATION 94.1 % (94.0-98.0); ABG OXYHEMOGLOBIN 93.3 % (94.0-98.0); ABG PCO2 60 mmHg (32.0-45.0); ABG PH 7.333 (7.350-7.450); ABG TOTAL HEMOGLOBIN 14.1 G/dL (12.0-16.0); PO2, ARTERIAL BG 75.2 mmHg (83.0-108.0); SOURCE, BLOOD GAS ARTERIAL; TEMPERATURE, FAHRENHEIT, BG 98.6 FAHREN (96.0-98.6)
[2024-07-24 11:45] LABS: ABG A-A DIFF O2 141.3 mmHg (10-20.0); ALLEN TEST, BLOOD GAS Positive; SITE, BLOOD GAS RT RADIAL
[2024-07-24 11:46] LABS: CPAP, BG 0 cm H2O; O2 DEVICE,BLOOD GAS VENTILATOR (ROOM AIR); PRESSURE SUPPORT, BG 8 cm H2O; SPONTANEOUS VT, BG 400 ml; VENT MODE, BG CPAP (ROOM AIR)
[2024-07-24 18:51] LABS: GLUCOMETER DEV NAME(LOC) ICUN.5; GLUCOSE,POINT OF CARE 334 MG/DL (70-110)
[2024-07-24 21:31] LABS: GLUCOMETER DEV NAME(LOC) ICU.S6; GLUCOSE,POINT OF CARE 336 MG/DL (70-110)
[2024-07-24] MEDS: AMINO ACIDS/PROTEIN HYDROLYS 30 ML LIQUID TUBE NG SCH (21:34)
[2024-07-25] VITALS (21 sets, daily range): BP systolic 131–185; BP diastolic 60–98; PULSE 67–100; RESP 18–27; TEMP 97.8–98.9; O2SAT 92–97
[2024-07-25 00:51] LABS: GLUCOMETER DEV NAME(LOC) ICU.S6; GLUCOSE,POINT OF CARE 360 MG/DL (70-110)
[2024-07-25 06:11] LABS: BASOPHILS % (AUTO) 0.5 % (0.0-2.0); EOSINOPHILS % (AUTO) 0 % (1.0-6.0); HEMATOCRIT 40.6 % (36-46); HEMOGLOBIN 12.9 g/dL (12.0-16.0); LYMPHOCYTES # (AUTO) 0.7 K/uL (1.0-4.8); LYMPHOCYTES % (AUTO) 7.2 % (22.0-44.0); MEAN CORPUSCULAR HEMOGLOBIN 29.2 pg (26.0-34.0); MEAN CORPUSCULAR HGB CONC 31.9 G/dL (31.0-37.0); MEAN CORPUSCULAR VOLUME 92 fL (80-100); MONOCYTES # (AUTO) 0.7 K/uL (0.1-1.0); MONOCYTES % (AUTO) 7.6 % (2.0-9.0); NEUTROPHILS # (AUTO) 7.9 K/uL (1.8-7.7); NEUTROPHILS % (AUTO) 84.7 % (40.0-70.0); PLATELET COUNT (AUTO) 182 K/uL (150-450); RED BLOOD CELL COUNT(AUTO) 4.42 MIL/uL (4.00-5.20); RED CELL DISTRIBUTION WIDTH 15.4 % (11.5-14.5); WHITE BLOOD COUNT (AUTO) 9.4 K/uL (4.5-11.0)
[2024-07-25 06:25] LABS: ANION GAP 5 mmol/L (8-16); CALCIUM, TOTAL 8.9 mg/dL (8.8-10.5); CARBON DIOXIDE 33 mmol/L (22-29); CHLORIDE 107 mmol/L (98-107); CREATININE 0.93 mg/dL (0.60-1.30); GLOMERULAR FILTR. RATE CALC > 60 mL/min (>60); GLUCOSE,RANDOM 337 mg/dL (70-110); PHOSPHORUS 3.6 mg/dL (2.5-4.9); POTASSIUM 4.9 mmol/L (3.5-5.1); SODIUM SERUM 145 mmol/L (136-145); UREA NITROGEN, BLOOD 56 mg/dL (7-18)
[2024-07-25 06:50] LABS: GLUCOMETER DEV NAME(LOC) ICU.S6; GLUCOSE,POINT OF CARE 331 MG/DL (70-110)
[2024-07-25] MEDS: INSULIN GLARGINE,HUM.REC.ANLOG 100 UNITS/ML SQ SCH (08:02)
[2024-07-25] MEDS: BUMETANIDE 0.25 MG/ML 4 ML VIAL IVP ONE (10:14)
[2024-07-25 12:46] LABS: ABG A-A DIFF O2 146.5 mmHg (10-20.0); ABG BASE EXCESS 8.2 mmol/L (-2.0-3.0); ABG HCO3 30.3 mmol/L (21.0-28.0); ABG METHEMOGLOBIN 0.3 % (0.0-1.5); ABG OXYGEN CONTENT 19.5 mL/dL (15.0-23.0); ABG OXYGEN SATURATION 94.6 % (94.0-98.0); ABG OXYHEMOGLOBIN 93.4 % (94.0-98.0); ABG PCO2 55 mmHg (32.0-45.0); ABG PH 7.399 (7.350-7.450); ABG TOTAL HEMOGLOBIN 14.8 G/dL (12.0-16.0); ALLEN TEST, BLOOD GAS Positive; CPAP, BG 0 cm H2O; O2 DEVICE,BLOOD GAS VENTILATOR (ROOM AIR); PO2, ARTERIAL BG 75.8 mmHg (83.0-108.0); PRESSURE SUPPORT, BG 8 cm H2O; SITE, BLOOD GAS RT RADIAL; SOURCE, BLOOD GAS ARTERIAL; SPONTANEOUS VT, BG 400 ml; TEMPERATURE, FAHRENHEIT, BG 98.6 FAHREN (96.0-98.6); VENT MODE, BG CPAP (ROOM AIR)
[2024-07-25 12:51] LABS: GLUCOMETER DEV NAME(LOC) ICU.S6; GLUCOSE,POINT OF CARE 288 MG/DL (70-110)
[2024-07-25] MEDS: LOSARTAN POTASSIUM 25 MG TABLET PO ONE (15:50)
[2024-07-25] MEDS: LORazepam 2 MG/ML VIAL IVP PRN (21:26)
[2024-07-25] MEDS: LOSARTAN POTASSIUM 50 MG TABLET PO SCH (21:38)
[2024-07-26] VITALS (16 sets, daily range): BP systolic 148–174; BP diastolic 75–95; PULSE 84–116; RESP 12–37; TEMP 98.6–98.9; O2SAT 90–98
[2024-07-26 05:01] LABS: GLUCOMETER DEV NAME(LOC) ICUN.5; GLUCOSE,POINT OF CARE 274 MG/DL (70-110)
[2024-07-26 06:27] LABS: BASOPHILS % (AUTO) 0.6 % (0.0-2.0); EOSINOPHILS % (AUTO) 0 % (1.0-6.0); HEMATOCRIT 45.4 % (36-46); HEMOGLOBIN 14.4 g/dL (12.0-16.0); LYMPHOCYTES # (AUTO) 1.1 K/uL (1.0-4.8); LYMPHOCYTES % (AUTO) 9.8 % (22.0-44.0); MEAN CORPUSCULAR HEMOGLOBIN 29.3 pg (26.0-34.0); MEAN CORPUSCULAR HGB CONC 31.8 G/dL (31.0-37.0); MEAN CORPUSCULAR VOLUME 92 fL (80-100); MONOCYTES # (AUTO) 0.9 K/uL (0.1-1.0); MONOCYTES % (AUTO) 8.2 % (2.0-9.0); NEUTROPHILS # (AUTO) 9.2 K/uL (1.8-7.7); NEUTROPHILS % (AUTO) 81.4 % (40.0-70.0); PLATELET COUNT (AUTO) 164 K/uL (150-450); RED BLOOD CELL COUNT(AUTO) 4.93 MIL/uL (4.00-5.20); RED CELL DISTRIBUTION WIDTH 15.8 % (11.5-14.5); WHITE BLOOD COUNT (AUTO) 11.3 K/uL (4.5-11.0)
[2024-07-26 06:50] LABS: GLUCOMETER DEV NAME(LOC) ICU.S6; GLUCOSE,POINT OF CARE 321 MG/DL (70-110)
[2024-07-26 07:07] LABS: ANION GAP 8 mmol/L (8-16); CALCIUM, TOTAL 9.6 mg/dL (8.8-10.5); CARBON DIOXIDE 33 mmol/L (22-29); CHLORIDE 105 mmol/L (98-107); CREATININE 0.91 mg/dL (0.60-1.30); GLOMERULAR FILTR. RATE CALC > 60 mL/min (>60); GLUCOSE,RANDOM 300 mg/dL (70-110); POTASSIUM 5.1 mmol/L (3.5-5.1); SODIUM SERUM 146 mmol/L (136-145); UREA NITROGEN, BLOOD 60 mg/dL (7-18)
[2024-07-26 08:01] LABS: GLUCOMETER DEV NAME(LOC) ICU.S6; GLUCOSE,POINT OF CARE 284 MG/DL (70-110)
[2024-07-26 12:10] LABS: GLUCOMETER DEV NAME(LOC) ICU.S6; GLUCOSE,POINT OF CARE 296 MG/DL (70-110)
[2024-07-26] MEDS: FUROSEMIDE 20 MG/2 ML VIAL IVP ONE (13:51)
[2024-07-26 13:56] LABS: GLUCOMETER DEV NAME(LOC) ICUN.5; GLUCOSE,POINT OF CARE 331 MG/DL (70-110)
[2024-07-26] MEDS: MORPHINE SULFATE 2 MG/ML SYRINGE IVP PRN (16:12)
[2024-07-26] MEDS: MethylPREDNISolone SOD SUCC 40 MG/ML VIAL IVP SCH (17:37)
[2024-07-26 18:10] LABS: GLUCOMETER DEV NAME(LOC) ICUN.5; GLUCOSE,POINT OF CARE 312 MG/DL (70-110)
[2024-07-26] MEDS ORDERED: SODIUM CHLORIDE 0.9% 250 ML IV ONE (20:55)
[2024-07-27] VITALS (17 sets, daily range): BP systolic 149–177; BP diastolic 85–100; PULSE 82–108; RESP 15–26; TEMP 98.6–99.2; O2SAT 90–100
[2024-07-27 05:59] LABS: BASOPHILS % (AUTO) 0.1 % (0.0-2.0); EOSINOPHILS % (AUTO) 0.3 % (1.0-6.0); HEMOGLOBIN 14.8 g/dL (12.0-16.0); LYMPHOCYTES % (AUTO) 8.8 % (22.0-44.0); MEAN CORPUSCULAR HEMOGLOBIN 28.5 pg (26.0-34.0); MEAN CORPUSCULAR HGB CONC 30.9 G/dL (31.0-37.0); MEAN CORPUSCULAR VOLUME 92 fL (80-100); MONOCYTES % (AUTO) 8.2 % (2.0-9.0); NEUTROPHILS # (AUTO) 9.8 K/uL (1.8-7.7); NEUTROPHILS % (AUTO) 82.6 % (40.0-70.0); PLATELET COUNT (AUTO) 172 K/uL (150-450); RED CELL DISTRIBUTION WIDTH 15.7 % (11.5-14.5); WHITE BLOOD COUNT (AUTO) 11.9 K/uL (4.5-11.0)
[2024-07-27 06:05] LABS: ANION GAP 3 mmol/L (8-16); CALCIUM, TOTAL 9.8 mg/dL (8.8-10.5); CARBON DIOXIDE 37 mmol/L (22-29); CHLORIDE 105 mmol/L (98-107); CREATININE 0.98 mg/dL (0.60-1.30); GLOMERULAR FILTR. RATE CALC > 60 mL/min (>60); GLUCOSE,RANDOM 291 mg/dL (70-110); POTASSIUM 5.2 mmol/L (3.5-5.1); SODIUM SERUM 145 mmol/L (136-145); UREA NITROGEN, BLOOD 57 mg/dL (7-18)
[2024-07-27 06:26] LABS: GLUCOMETER DEV NAME(LOC) ICUN.5; GLUCOSE,POINT OF CARE 269 MG/DL (70-110)
[2024-07-27 11:20] LABS: GLUCOMETER DEV NAME(LOC) ICU.S6; GLUCOSE,POINT OF CARE 264 MG/DL (70-110)
[2024-07-27 11:20] LABS: GLUCOMETER DEV NAME(LOC) ICUN.5; GLUCOSE,POINT OF CARE 232 MG/DL (70-110)
[2024-07-27 16:25] LABS: GLUCOMETER DEV NAME(LOC) ICU.S6; GLUCOSE,POINT OF CARE 285 MG/DL (70-110)
[2024-07-27 20:45] LABS: GLUCOMETER DEV NAME(LOC) ICUN.5; GLUCOSE,POINT OF CARE 299 MG/DL (70-110)
[2024-07-28] VITALS (18 sets, daily range): BP systolic 117–157; BP diastolic 65–89; PULSE 70–104; RESP 16–23; TEMP 98.1–99.8; O2SAT 91–99
[2024-07-28 03:46] LABS: GLUCOMETER DEV NAME(LOC) ICU.S6; GLUCOSE,POINT OF CARE 268 MG/DL (70-110)
[2024-07-28 06:33] LABS: ANION GAP 3 mmol/L (8-16); CALCIUM, TOTAL 9.6 mg/dL (8.8-10.5); CARBON DIOXIDE 35 mmol/L (22-29); CHLORIDE 104 mmol/L (98-107); CREATININE 0.94 mg/dL (0.60-1.30); GLOMERULAR FILTR. RATE CALC > 60 mL/min (>60); GLUCOSE,RANDOM 318 mg/dL (70-110); POTASSIUM 4.9 mmol/L (3.5-5.1); SODIUM SERUM 142 mmol/L (136-145); UREA NITROGEN, BLOOD 52 mg/dL (7-18)
[2024-07-28 06:38] LABS: BASOPHILS % (AUTO) 0.6 % (0.0-2.0); EOSINOPHILS % (AUTO) 0.1 % (1.0-6.0); HEMATOCRIT 45.9 % (36-46); HEMOGLOBIN 14.6 g/dL (12.0-16.0); LYMPHOCYTES % (AUTO) 9.8 % (22.0-44.0); MEAN CORPUSCULAR HEMOGLOBIN 29.3 pg (26.0-34.0); MEAN CORPUSCULAR HGB CONC 31.9 G/dL (31.0-37.0); MEAN CORPUSCULAR VOLUME 92 fL (80-100); MONOCYTES # (AUTO) 0.8 K/uL (0.1-1.0); MONOCYTES % (AUTO) 8.5 % (2.0-9.0); NEUTROPHILS # (AUTO) 8.1 K/uL (1.8-7.7); PLATELET COUNT (AUTO) 163 K/uL (150-450); RED CELL DISTRIBUTION WIDTH 15.5 % (11.5-14.5)
[2024-07-28] MEDS: MethylPREDNISolone SOD SUCC 40 MG/ML VIAL IVP SCH (09:38)
[2024-07-28 11:21] LABS: GLUCOMETER DEV NAME(LOC) ICU.S6; GLUCOSE,POINT OF CARE 273 MG/DL (70-110)
[2024-07-28] MEDS: BISACODYL 10 MG RECTAL RECTAL SUPPOSITORY PR PRN (12:06)
[2024-07-28 17:21] LABS: GLUCOMETER DEV NAME(LOC) 5N.1D; GLUCOSE,POINT OF CARE 350 MG/DL (70-110)
[2024-07-28 19:56] LABS: GLUCOMETER DEV NAME(LOC) ICU.S6; GLUCOSE,POINT OF CARE 367 MG/DL (70-110)
[2024-07-29] VITALS (15 sets, daily range): BP systolic 117–141; BP diastolic 63–98; PULSE 75–100; RESP 18–29; TEMP 98.1–98.9; O2SAT 77–98
[2024-07-29 01:26] LABS: GLUCOMETER DEV NAME(LOC) 5S.2D; GLUCOSE,POINT OF CARE 350 MG/DL (70-110)
[2024-07-29] MEDS ORDERED: MINERAL OIL 133 ML ENEMA PR PRN (15:00)
[2024-07-29 15:36] LABS: GLUCOMETER DEV NAME(LOC) 5S.2D; GLUCOSE,POINT OF CARE 355 MG/DL (70-110)
[2024-07-29 15:36] LABS: GLUCOMETER DEV NAME(LOC) 5S.2D; GLUCOSE,POINT OF CARE 305 MG/DL (70-110)
[2024-07-29 15:36] LABS: GLUCOMETER DEV NAME(LOC) 5N.1D; GLUCOSE,POINT OF CARE 348 MG/DL (70-110)
[2024-07-29 20:25] LABS: GLUCOMETER DEV NAME(LOC) 6S.1D; GLUCOSE,POINT OF CARE 362 MG/DL (70-110)
[2024-07-29 20:25] LABS: GLUCOMETER DEV NAME(LOC) 6S.1D; GLUCOSE,POINT OF CARE 378 MG/DL (70-110)
[2024-07-30 03:01] VITALS: BP 121/80; PULSE 83; RESP 20; TEMP 98.7; O2SAT 94
[2024-07-30 07:10] LABS: GLUCOMETER DEV NAME(LOC) 6S.2; GLUCOSE,POINT OF CARE 261 MG/DL (70-110)
[2024-07-30 07:53] VITALS: BP 125/76; PULSE 88; RESP 20; TEMP 97.7; O2SAT 95; O2SAT 96
[2024-07-30 08:00] VITALS: PULSE 86; RESP 16; RESP 18; O2SAT 96; O2SAT 98
[2024-07-30] MEDS: PredniSONE 20 MG TABLET PO SCH (08:21)
[2024-07-30] MEDS: INSULIN GLARGINE,HUM.REC.ANLOG 100 UNITS/ML SQ SCH (08:27)
[2024-07-30 09:00] VITALS: PULSE 90; RESP 18; O2SAT 99
[2024-07-30 10:08] LABS: ANION GAP 1 mmol/L (8-16); CALCIUM, TOTAL 9.4 mg/dL (8.8-10.5); CARBON DIOXIDE 37 mmol/L (22-29); CHLORIDE 102 mmol/L (98-107); CREATININE 0.97 mg/dL (0.60-1.30); GLOMERULAR FILTR. RATE CALC > 60 mL/min (>60); GLUCOSE,RANDOM 239 mg/dL (70-110); PHOSPHORUS 3.7 mg/dL (2.5-4.9); SODIUM SERUM 140 mmol/L (136-145); UREA NITROGEN, BLOOD 48 mg/dL (7-18)
[2024-07-30 14:00] VITALS: PULSE 72; RESP 16; O2SAT 99
[2024-07-30] MEDS ORDERED: AMLO-258 PO (14:52)
[2024-07-30] MEDS ORDERED: BENZ-227 PO (14:52)
[2024-07-30] MEDS ORDERED: ALBU2.5V39 NEB ×2 (14:52→14:58)
[2024-07-30] MEDS ORDERED: BUDE0.5A NEB (14:53)
[2024-07-30] MEDS ORDERED: HEPA500018 SQ (14:53)
[2024-07-30] MEDS ORDERED: DOCU-385 PO (14:53)
[2024-07-30] MEDS ORDERED: INSLAN SQ (14:54)
[2024-07-30] MEDS ORDERED: METO50 PO (14:55)
[2024-07-30] MEDS ORDERED: IPRA0.2S49 NEB ×2 (14:55→15:04)
[2024-07-30] MEDS ORDERED: LOSA-382 PO (14:55)
[2024-07-30] MEDS ORDERED: PANT-31 PO (14:56)
[2024-07-30] MEDS ORDERED: PRED-554 PO (14:56)
[2024-07-30] MEDS ORDERED: ACET-2247 PO (14:58)
[2024-07-30] MEDS ORDERED: BISA-151 PO (15:00)
[2024-07-30] MEDS ORDERED: INSU100V SQ (15:01)
[2024-07-30] MEDS ORDERED: MAGN-169 PO (15:05)
[2024-07-30] MEDS ORDERED: MINE133E26 PR (15:06)
[2024-07-30 15:55] LABS: GLUCOMETER DEV NAME(LOC) 6S.1D; GLUCOSE,POINT OF CARE 315 MG/DL (70-110)
== END 2024-07-30 16:29 | DRG 130 ==
LOC: EMS 19:19 → EDH 22:23 → ICU 07-17 09:25 → 5S 07-28 12:45 → 6S 07-29 17:45
PROVIDERS: ADMIT Internal Medicine; ATTEND Internal Medicine
PROC: 5A09357 Assistance with Respiratory Ventilation, Less than 24 Consecutive Hours, Continuous Positive Airway Pressure (ICD-10-PCS; 2024-07-16)
PROC: 0BH17EZ Insertion of Endotracheal Airway into Trachea, Via Natural or Artificial Opening (ICD-10-PCS; principal; 2024-07-17)
PROC: 5A1955Z Respiratory Ventilation, Greater than 96 Consecutive Hours (ICD-10-PCS; 2024-07-17)
PROC: 5A09357 Assistance with Respiratory Ventilation, Less than 24 Consecutive Hours, Continuous Positive Airway Pressure (ICD-10-PCS; 2024-07-17)
PROC: 05HF33Z Insertion of Infusion Device into Left Cephalic Vein, Percutaneous Approach (ICD-10-PCS; 2024-07-20)
PROC: B54NZZA Ultrasonography of Left Upper Extremity Veins, Guidance (ICD-10-PCS; 2024-07-20)
PROC: 5A09357 Assistance with Respiratory Ventilation, Less than 24 Consecutive Hours, Continuous Positive Airway Pressure (ICD-10-PCS; 2024-07-27)
PROC: 5A09357 Assistance with Respiratory Ventilation, Less than 24 Consecutive Hours, Continuous Positive Airway Pressure (ICD-10-PCS; 2024-07-28)
PROC: 5A09357 Assistance with Respiratory Ventilation, Less than 24 Consecutive Hours, Continuous Positive Airway Pressure (ICD-10-PCS; 2024-07-29)
DX: J96.02 Acute respiratory failure with hypercapnia (principal); N17.0 Acute kidney failure with tubular necrosis; G93.40 Encephalopathy, unspecified; J18.9 Pneumonia, unspecified organism; E44.0 Moderate protein-calorie malnutrition; E87.0 Hyperosmolality and hypernatremia; E87.29 Other acidosis; E66.2 Morbid (severe) obesity with alveolar hypoventilation; I11.0 Hypertensive heart disease with heart failure; Z20.822 Contact with and (suspected) exposure to COVID-19; J44.1 Chronic obstructive pulmonary disease with (acute) exacerbation; J40 Bronchitis, not specified as acute or chronic; T43.621A Poisoning by amphetamines, accidental (unintentional), initial encounter; N14.19 Nephropathy induced by other drugs, medicaments and biological substances; J44.0 Chronic obstructive pulmonary disease with (acute) lower respiratory infection; I16.0 Hypertensive urgency; R13.10 Dysphagia, unspecified; F15.10 Other stimulant abuse, uncomplicated; I50.9 Heart failure, unspecified; N05.1 Unspecified nephritic syndrome with focal and segmental glomerular lesions; Z79.899 Other long term (current) drug therapy; E11.65 Type 2 diabetes mellitus with hyperglycemia; Y92.89 Other specified places as the place of occurrence of the external cause; Z68.43 Body mass index [BMI] 50.0-59.9, adult
CPT/HCPCS: 36245; 36569; 36600; 71045; 71250; 76770; 76937; 80048; 80307; 81001; 81002; 82550; 82570; 82805; 82962; 83036; 83605; 83735; 83880; 84100; 84156; 84484; 85025; 85379; 87040; 87070; 87081; 87804; 92526; 92610; 93005; 93306; 93925; 93970; 94002; 94003; 94060; 94640; 94660; 97163; 97166; 97530; 97535; 99285; J0131; J0360; J0456; J0696; J1644; J1815; J1940; J2060; J2270; J2470; J2704; J2919; J3010; J3490; J7030; J7050; J7120; P9046; 36415-L1; 36415-TC; 82803-TC; J7613